=== PATIENT | female | born 1950 | race Caucasian/White ===

== ENCOUNTER 2018-09-19 18:48 | Emergency (ER) | payer BC, MEDICARE ==
[~2018-09-19] VITALS: Ht 165.1 cm; Wt 79.5 kg
[~2018-09-19 18:48] MED LIST: ATOR1TAB19 PO; CLAR10CA3 PO; CLON0.3T PO; COLA100C5 PO; OMEP40CA2 PO; VITA200015 PO; VITA500C24 PO
[2018-09-19 19:03] VITALS: BP 163/80
[2018-09-19] MEDS ORDERED: FLON1SPR NARES (19:56)
== END 2018-09-19 20:06 | disposition home or self-care (01) ==
LOC: M ED 18:48
DX: I10 Essential (primary) hypertension (principal); J32.9 Chronic sinusitis, unspecified; K90.0 Celiac disease; Z79.899 Other long term (current) drug therapy